=== PATIENT | male | born 1995 | race Caucasian/White ===

== ENCOUNTER 2017-01-12 21:47 | Emergency (ER) | payer MEDICAID ==
[2017-01-12] MEDS ORDERED: Albuterol-Ipratrop 3 mg / 0.5 (3 ml) UD ONE ×2 (22:05→22:51)
[2017-01-12] MEDS ORDERED: Promethazine/Cod 6.25mg-10mg/5ml Syr UD PO STA (22:45)
[2017-01-12] MEDS ORDERED: Albuterol-Ipratrop 3 mg / 0.5 (3 ml) UD IH SCH (22:45)
[2017-01-12] MEDS ORDERED: Promethazine/Cod 6.25mg-10mg/5ml Syr UD ONE (22:54)
--- NOTE | 2017-01-12 23:43 | C.PDOC ---
History Of Present Illness 21 year old male presents to the ED with complaints of SOB today prompting visit with symptoms of a productive cough, chest congestion and tightness for four days. Patient states he took over the counter medicines with no relief. He denies any fever, nausea, or vomiting. Time Seen by Provider: 01/12/17 22:42 Chief Complaint (Nursing): Shortness Of Breath History Per: Patient History/Exam Limitations: no limitations Onset/Duration Of Symptoms: Days Current Symptoms Are (Timing): Still Present Associated Symptoms: Productive Cough. denies: Fever, Chills, Sweating Recent travel outside of the [place]: No Past Medical History Reviewed: Historical Data, Nursing Documentation, Vital Signs Vital Signs: Last Vital Signs Temp 98.9 F 01/12/17 23:51 Pulse 89 01/12/17 23:51 Resp 20 01/12/17 23:51 BP 118/70 01/12/17 23:51 Pulse Ox 99 01/12/17 23:51 - Medical History PMH: Bronchitis Family History: States: Unknown Family Hx - Social History Hx Alcohol Use: No Hx Substance Use: No - Immunization History Hx Influenza Vaccination: Yes Review Of Systems Constitutional: Negative for: Fever, Chills, Sweats Cardiovascular: Positive for: Other (chest tightness and congestion ) Respiratory: Positive for: Cough (productive cough ), Shortness of Breath Gastrointestinal: Negative for: Nausea, Vomiting, Abdominal Pain, Diarrhea Physical Exam - Physical Exam Appears: Non-toxic, No Acute Distress Skin: Warm, Dry Head: Atraumatic Eye(s): bilateral: Normal Inspection Oral Mucosa: Moist Neck: Supple Chest: Symmetrical, No Deformity Cardiovascular: Rhythm Regular Respiratory: Decreased Breath Sounds (minimally decreased breath sounds ), No Rales, No Rhonchi, No Stridor, Wheezing (active wheezing bilaterally) Gastrointestinal/Abdominal: Soft, No Tenderness, No Distention, No Guarding, No Rebound Extremity: Normal ROM, No Tenderness Neurological/Psych: Oriented x3 ED Course And Treatment O2 Sat by Pulse Oximetry: 95 (room air ) - Radiology CXR: Interpreted by Me, Viewed By Me CXR Interpretation: No: Infiltrates Medical Decision Making Medical Decision Making: Patient was given nebulizer treatment, predniSONE, and promethazine. Upon reassessment patient is breathing room air and lungs are clear. Patient's symptoms have improved and was instructed to follow up with PMD. Disposition Counseled Patient/Family Regarding: Diagnosis, Need For Followup, Rx Given - Disposition Disposition: HOME/ ROUTINE Disposition Time: 23:41 Condition: STABLE Additional Instructions: Increase PO fluids Take all meds as prescribed Follow up in clinic Return to ER if worse Prescriptions: Albuterol HFA [Ventolin HFA 90 mcg/actuation (8 g)] 2 puff IH [id number] #1 puff Azithromycin [Zithromax] 250 mg PO DAILY #6 tab Benzonatate [Tessalon Perles] 100 mg PO TID #20 sgl predniSONE [Prednisone] 40 mg PO DAILY #10 tab Instructions: Acute Bronchitis (ED) - Clinical Impression Clinical Impression: Bronchitis with bronchospasm - Scribe Statement The provider has reviewed the documentation as recorded by the Scribautumn Lynch All medical record entries made by the Nicoleibautumn were at my direction and personally dictated by me. I have reviewed the chart and agree that the record accurately reflects my personal performance of the history, physical exam, medical decision making, and the department course for this patient. I have also personally directed, reviewed, and agree with the discharge instructions and disposition.
[2017-01-12 23:50] VITALS: RESP 20
[2017-01-12 23:52] VITALS: BP 118/70; PULSE 89; TEMP 98.9
[2017-01-13 00:36] VITALS: O2SAT 95
--- NOTE | 2017-01-13 12:24 | RAD ---
HISTORY: cough, SOB COMPARISON: 01/09/2013. TECHNIQUE: Chest PA and lateral FINDINGS: LUNGS: No active pulmonary disease. PLEURA: No significant pleural effusion identified. No pneumothorax apparent. CARDIOVASCULAR: Normal. OSSEOUS STRUCTURES: No significant abnormalities. VISUALIZED UPPER ABDOMEN: Normal. OTHER FINDINGS: None. IMPRESSION: No active disease. No significant interval change compared to the prior examination(s). Concordant results with the preliminary interpretation rendered by the emergency department physician procedure.
== END 2017-01-12 23:52 | disposition home or self-care (01) ==
LOC: C.ER 21:47
DX: J40 Bronchitis, not specified as acute or chronic (principal); J98.01 Acute bronchospasm